=== PATIENT | male | born 1945 ===

== ENCOUNTER 2020-10-19 17:32 | Inpatient (IN) | payer MEDICARE ==
[~2020-10-19 17:32] MED LIST: Heparin 10,000 UNITS/ 10 ML VIAL ONE; Nitroglycerin 0.4 MG TAB (25 Tab Bottle) ONE
[2020-10-19] MEDS ORDERED: Ondansetron PF 4 MG/2 ML Vial ONE (17:43)
[2020-10-19] MEDS ORDERED: Iopamidol 370 76% 50 ML VIAL FS ONE (17:44)
[2020-10-19] MEDS ORDERED: Iopamidol 370 76% 100 ML VIAL ONE (17:44)
[2020-10-19 17:48] LABS: #Basophils 0.1 thou/uL (0.0-0.2); #Eosinphils 0.1 thou/uL (0.0-0.7); #Lymphocytes 1.7 thou/uL (1.20-3.40); #Monocytes 0.6 thou/uL (0.11-0.59); #Neutrophils 8.4 thou/uL (1.40-6.50); %Basophils 0.6 % (0.0-1.0); %Eosinophils 0.5 % (0.0-10.0); %Lymphocytes 15.9 % (21.0-51.0); %Monocytes 5.6 % (0.0-10.0); %Neutrophils 77.4 % (42.0-75.0); Hemoglobin 11.6 g/dL (14.0-18.0); Mean Corpuscular HGB CONC 32.4 g/dL (32.0-36.0); Mean Corpuscular Hemoglobin 29.1 pg (27.0-31.0); Mean Corpuscular Volume 89.9 fL (78.0-98.0); Mean Platelet Volume 7.8 fL (7.4-10.4); Platelet Count 252 thou/uL (130-400); RBC Distribution Width 14.7 % (11.5-14.5); Red Blood Cell (RBC) Count 3.97 mill/uL (4.70-6.10); White Blood Cell (WBC) Count 10.8 thou/uL (4.8-10.8)
--- NOTE | 2020-10-19 17:51 | RAD ---
EXAM: CHEST ONE VIEW: 10/19/20 HISTORY: Epigastric pain, mid sternal chest pain, pain radiating to arms and neck. FINDINGS: Monitor leads overlie the chest and somewhat obscured. Heart size is normal. No confluent pneumonia, overt edema, or pleural effusion. IMPRESSION: No significant acute intrathoracic disease. POS: RRE
[2020-10-19 17:56] LABS: PTT 32.2 sec (22.9-36.1); Prothrombin Time 13.6 sec (12.0-14.7)
[2020-10-19 18:05] LABS: ALT (SGPT) Less than 7 U/L (8-55); AST (SGOT) 15 U/L (5-34); Albumin 3.8 g/dL (3.4-4.8); Alkaline Phosphatase 82 U/L (40-110); Anion Gap 11 mmol/L (10-20); BUN (Urea Nitrogen) 10 mg/dL (8.4-25.7); Bilirubin, Total 0.2 mg/dL (0.2-1.2); CK (CPK) 134 U/L (30-200); Calc. Creatinine Clearance 0 mL/min (70-130); Calcium 8.5 mg/dL (7.8-10.44); Carbon Dioxide 27 mmol/L (23-31); Chloride 98 mmol/L (98-107); Glucose 127 mg/dL (83-110); Lipase 18 U/L (8-78); Potassium 3.7 mmol/L (3.5-5.1); Protein, Total 7.8 g/dL (5.8-8.1); Sodium 132 mmol/L (136-145)
[2020-10-19 18:13] LABS: CKMB 15.6 ng/mL (0-6.6)
[2020-10-19] MEDS ORDERED: TICAGRELOR 90 MG TABLET ONE (18:30)
[2020-10-19] MEDS ORDERED: Atropine Sulfate 1 mg/10 ml Syringe ONE (18:32)
[2020-10-19] MEDS ORDERED: EPINEPHrine 1 MG/10 ML Abboject SYRINGE ONE (18:34)
[2020-10-19] MEDS ORDERED: Adenosine 6 MG/2 ML VIAL ONE (18:39)
[2020-10-19] MEDS ORDERED: Nitroglycerin 100MG/250ML BOT 0 ML ONE (18:43)
--- NOTE | 2020-10-19 19:40 | HP ---
INDICATION FOR ADMISSION: A 75-year-old gentleman with acute inferior myocardial infarction, ST-segment elevation. HISTORY OF PRESENT ILLNESS: This 75-year-old gentleman who underwent cardiac catheterization in 1999 in [place], where he had a myocardial infarction, was told he had coronary artery disease and he has to stop smoking. He did not do this and now he presents today after having chest pain since around 1:30 this afternoon. It is now approximately 6:00 p.m. He presented to the emergency room approximately 20 to 30 minutes ago due to chest pain which started this afternoon. His chest pain, he rates it as a 6 to 7/10. He did not take anything for the chest pain. EKG shows acute inferior myocardial infarction with ST-segment elevation. He will be advised to undergo cardiac catheterization. He denies any history of hypertension, hypercholesterolemia, diabetes. Unfortunately, he continues to smoke quite a bit. FAMILY HISTORY: He has one brother, who had myocardial infarction, at age 75. PAST MEDICAL HISTORY: Significant for myocardial infarction in 1999, at which time he was in [place]. He has had three back surgeries. He has also had neck surgery back in March of last year. SOCIAL HISTORY: He is a . He has children, who are alive and well. He has continued tobacco abuse. He denied alcohol use. ALLERGIES: NONE. MEDICATIONS: At home include gabapentin and hydrocodone. In the emergency room, he was given heparin 4000 units, IV fluids. He was given aspirin 325 mg and morphine 2 mg, 2 nitroglycerins, and 600 mL of normal saline. He will be started on nitroglycerin drip. ALLERGIES: NONE. REVIEW OF SYSTEMS: 12-point review of systems unremarkable for history of restless legs syndrome. He said his legs give out when he tries to walk. PHYSICAL EXAMINATION: GENERAL: Reveals an elderly gentleman, who is in moderate degree of distress at this time. VITAL SIGNS: Blood pressure is about 115/70, heart rates in the 60s, shows a sinus rhythm thus far. HEENT: Shows the head to be normocephalic and atraumatic. Carotid pulses are present. I do not hear any bruits. CHEST: Actually clear to auscultation. He has decreased breath sounds. I did not hear any rales, rhonchi, or wheezing. CARDIOVASCULAR: Reveals a regular rate and rhythm. Normal S1 and S2. There were no significant murmurs, heaves, thrills, bruits, or rubs. ABDOMEN: Soft. He does have some tympany noted, but no significant tenderness or masses are noted. Femoral pulses are present, slightly decreased. EXTREMITIES: Showed no clubbing, cyanosis, or edema. Pedal pulses are present, somewhat decreased on the left side, but are present. The posterior tibial is slightly decreased on the left side. NEUROLOGIC: He appears to be grossly intact with no gross focal motor deficits. LABORATORY DATA: Thus far shows a hemoglobin of 11.6, platelet count 252,000, WBC of 10.8. EKG shows acute inferior myocardial infarction with evidence of possible old anterior myocardial infarction. I have explained the procedure, the risks to proceed with cardiac catheterization to the patient and the risks included bleeding, infection, possible myocardial infarction worsening, may not be able to open the vessel, CVA, renal insufficiency, bleeding, and even the possibility of . He understands and agrees to proceed. We will plan for cardiac catheterization. Also spoke with his daughter, Desiree and we will keep her informed of the results of the cardiac catheterization. IMPRESSION: 1. Acute ST-segment elevation myocardial infarction in the inferior area with possible old anterior myocardial infarction on the EKGs. 2. History of tobacco abuse. 3. History of restless legs syndrome. Job ID: [id number]
[2020-10-19 19:44] VITALS: BMI 20.9
[2020-10-19] MEDS ORDERED: Nitroglycerin 0.4 MG TAB (25 Tab Bottle) SL PRN (20:00)
[2020-10-19] MEDS ORDERED: Mag-Al 1200 mg/1200 mg/30 ML UDCUP PO PRN (20:00)
[2020-10-19] MEDS ORDERED: Acetaminophen/Codeine 30-300mg Tablet PO PRN ×2 (20:00)
[2020-10-19] MEDS ORDERED: Milk Of Magnesia 30 ML UDCUP PO PRN (20:00)
[2020-10-19] MEDS ORDERED: Sodium Chloride 0.9% 1,000 ML IV SCH (20:00)
[2020-10-19] MEDS ORDERED: Heparin 10,000 UNITS/ 10 ML VIAL SLOW IVP SCH (20:00)
[2020-10-19] MEDS ORDERED: cloNIDine 0.1 MG TAB PO PRN (20:00)
[2020-10-19] MEDS ORDERED: Zolpidem Tartrate 5 MG TAB PO PRN (20:00)
[2020-10-19] MEDS ORDERED: Heparin 25,000 units/D5W 500 ML IV SCH (20:00)
[2020-10-19] MEDS: Atorvastatin Calcium 40 MG TAB PO SCH (20:54)
[2020-10-19] MEDS: Carvedilol 3.125 MG TAB PO SCH (20:54)
[2020-10-19] MEDS: TICAGRELOR 90 MG TABLET PO SCH (20:54)
[2020-10-19] MEDS ORDERED: traZODone HCl 150 MG TAB PO SCH (21:45)
[2020-10-19] MEDS: Gabapentin 300 MG CAP PO SCH (22:20)
[2020-10-19] MEDS: HYDROcodone/Acetaminophen 10/325 mg Tablet PO PRN (22:37)
[2020-10-20 01:17] LABS: Troponin I 77.171 ng/mL (< 0.028)
[2020-10-20 01:43] LABS: SARS-CoV-2 PCR by NAA Not Detected (NotDetected)
[2020-10-20 05:41] LABS: #Lymphocytes 2.1 thou/uL (1.20-3.40); #Monocytes 0.5 thou/uL (0.11-0.59); #Neutrophils 5.3 thou/uL (1.40-6.50); %Basophils 0.5 % (0.0-1.0); %Eosinophils 0.3 % (0.0-10.0); %Lymphocytes 26.3 % (21.0-51.0); %Monocytes 6.3 % (0.0-10.0); %Neutrophils 66.6 % (42.0-75.0); Hemoglobin 9.9 g/dL (14.0-18.0); Mean Corpuscular HGB CONC 31.8 g/dL (32.0-36.0); Mean Corpuscular Hemoglobin 28.3 pg (27.0-31.0); Mean Corpuscular Volume 89.1 fL (78.0-98.0); Platelet Count 221 thou/uL (130-400); RBC Distribution Width 14.8 % (11.5-14.5); Red Blood Cell (RBC) Count 3.48 mill/uL (4.70-6.10)
[2020-10-20 06:04] LABS: ALT (SGPT) 21 U/L (8-55); AST (SGOT) 114 U/L (5-34); Albumin 3.1 g/dL (3.4-4.8); Alkaline Phosphatase 69 U/L (40-110); Anion Gap 10 mmol/L (10-20); BUN (Urea Nitrogen) 8 mg/dL (8.4-25.7); Bilirubin, Total 0.3 mg/dL (0.2-1.2); Calc. Creatinine Clearance 67 mL/min (70-130); Calcium 8.2 mg/dL (7.8-10.44); Carbon Dioxide 26 mmol/L (23-31); Chloride 102 mmol/L (98-107); Globulin 3.4 g/dL (2.4-3.5); Glucose 113 mg/dL (83-110); Protein, Total 6.5 g/dL (5.8-8.1); Sodium 134 mmol/L (136-145)
[2020-10-20 06:32] LABS: Troponin I 98.502 ng/mL (< 0.028)
[2020-10-20] MEDS ORDERED: FLU VACC QS2020-21(65YR UP)/PF 240 MCG/0.7 ML SYRINGE IM ONE (09:00)
[2020-10-20] MEDS: HYDROcodone/Acetaminophen 10/325 mg Tablet PO PRN (09:16)
[2020-10-20] MEDS: TICAGRELOR 90 MG TABLET PO SCH ×2 (09:17→20:41)
[2020-10-20] MEDS: Carvedilol 3.125 MG TAB PO SCH ×2 (09:17→20:41)
[2020-10-20] MEDS: Gabapentin 300 MG CAP PO SCH ×3 (09:18→20:41)
[2020-10-20] MEDS: Aspirin Chewable 81 MG TAB PO SCH (09:18)
[2020-10-20] MEDS: Lisinopril 2.5 MG TAB PO SCH (09:18)
--- NOTE | 2020-10-20 10:46 | PDOC.CPN ---
- Subjective Date: 10/20/20 Time: 10:44 - Review of Systems General: denies: fever/chills, weight/appetite/sleep changes, night sweats, fatigue Respiratory: denies: cough, congestion, shortness of breath, exercise intolerance Cardiovascular: denies: chest pain, palpitation, edema, paroxysmal nocturnal dyspnea, orthopnea Gastrointestinal: reports: nausea Musculoskeletal: denies: pain, tenderness, stiffness, swelling, arthritis/arthralgias Neurological: denies: numbness, syncope, seizure, weakness - Objective Allergies/Adverse Reactions: Allergies Allergy/AdvReac Type Severity Reaction Status Date / Time No Known Drug Allergies Allergy Verified 10/19/20 21:13 Visit Medications: Current Medications Acetaminophen/Codeine Phosphate (Acetaminophen/Codeine 30-300mg Tablet) 1 tab PO Q4H PRN PRN Reason: PAIN (1-3) Acetaminophen/Codeine Phosphate (Acetaminophen/Codeine 30-300mg Tablet) 2 tab PO Q4H PRN PRN Reason: PAIN (4-6) Hydrocodone Bitart/Acetaminophen (Hydrocodone/Acetaminophen 10/325 Mg Tablet) 1 tab PO Q4H PRN PRN Reason: Moderate Pain (4-6) Last Admin: 10/20/20 09:16 Dose: 1 tab Documented by: Al Hydroxide/Mg Hydroxide (Mag-Al 1200 Mg/1200 Mg/30 Ml Udcup) 30 ml PO Q3H PRN PRN Reason: Heartburn or Indigestion Alprazolam (Alprazolam 0.25 Mg Tab) 0.25 mg PO TID [facility] Aspirin (Aspirin Chewable 81 Mg Tab) 81 mg PO DAILY [facility] Last Admin: 10/20/20 09:18 Dose: 81 mg Documented by: Atorvastatin Calcium (Atorvastatin Calcium 40 Mg Tab) 40 mg PO HS [facility] Last Admin: 10/19/20 20:54 Dose: 40 mg Documented by: Carvedilol (Carvedilol 3.125 Mg Tab) 3.125 mg PO BID [facility] Last Admin: 10/20/20 09:17 Dose: 3.125 mg Documented by: Clonidine (Clonidine 0.1 Mg Tab) 0.1 mg PO Q2H PRN PRN Reason: SBP GREATER THAN 160 Gabapentin (Gabapentin 300 Mg Cap) 300 mg PO TID [facility] Last Admin: 10/20/20 09:18 Dose: 300 mg Documented by: Lisinopril (Lisinopril 2.5 Mg Tab) 2.5 mg PO DAILY [facility] Last Admin: 10/20/20 09:18 Dose: 2.5 mg Documented by: Magnesium Hydroxide (Milk Of Magnesia 30 Ml Udcup) 30 ml PO Q12H PRN PRN Reason: Constipation Nitroglycerin (Nitroglycerin 0.4 Mg Tab (25 Tab Bottle)) 0.4 mg SL Q5MIN PRN PRN Reason: Chest Pain Sodium Chloride (Flush - Normal Saline 10 Ml Syringe) 10 ml IVF PRN PRN PRN Reason: Saline Flush Ticagrelor (Ticagrelor 90 Mg Tablet) 90 mg PO BID [facility] Last Admin: 10/20/20 09:17 Dose: 90 mg Documented by: Trazodone HCl (Trazodone Hcl 150 Mg Tab) 150 mg PO HS [facility]IEL Zolpidem Tartrate (Zolpidem Tartrate 5 Mg Tab) 5 mg PO HS PRN PRN Reason: Insomnia Vital Signs & Weight: Vital Signs Temp Pulse BP 10/20/20 09:18 82 132/70 10/20/20 04:00 98.7 F 10/20/20 00:00 99.6 F Weight 138 lb 0.15 oz - Quality Measures Condition: Myocardial Infarction CV meds: Beta Deepti: Yes, FABIOLA/ARB: Yes, Statin: Yes, ASA: Yes - Physical Exam General: alert & oriented x3 HEENT: normocephaly Neck: no JVD/HJR Cardiac: no murmur Lungs: decreased breath sounds Neuro: grossly intact Abdomen: active bowel sounds, soft Extremities: no cyanosis, no clubbing, no edema Skin: clear Musculoskeletal: normal range of motion - Labs Result Diagrams: 10/20/20 05:25 10/20/20 05:25 Troponin/CKMB CK-MB (CK-2) 15.6 ng/mL (0-6.6) H* 10/19/20 17:39 Troponin I 98.502 ng/mL (< 0.028) H* 10/20/20 05:25 - Telemetry Sinus rhythms and dysrhythmias: sinus rhythm - Assessment/Plan Assessment/Plan: 1. CAD. s/p Inf. STEMI. PTCA/Stent RADU to prox. RCA. EF preserved. 2. obacco abuse. Will need assistance to stop, he is anxious and requesting something for nicotine withdrawal.ill give Xanax for now.
[2020-10-20] MEDS ORDERED: ALPRAZolam 0.25 MG TAB PO SCH (11:30)
--- NOTE | 2020-10-20 11:40 | CON ---
DATE OF CONSULTATION: REQUESTING PHYSICIAN: Maday Mendoza MD HISTORY OF PRESENT ILLNESS: This is a patient who was admitted with an acute RI, underwent coronary artery angiography with PTCA and stents, and was sent to the ICU. His sheath was removed this morning and Pulmonary consult was requested. The patient is a 2-pack per day smoker, started smoking at the age of 12, has no dyspnea, but has an occasional cough. He stopped smoking for approximately 10 years, but then resumed again. He states that he has a feeling of shortness of breath when he takes a deep breath today. He has no history of any DVT or PE. He did not have these symptoms prior to admission. He has no family history of thromboembolic disease either. He has no limitations of his physical activities. He is on a regular diet. He does wish to stop smoking and wishes some assistance with that. FAMILY HISTORY: Negative for stroke, RI, or COPD. PAST MEDICAL HISTORY: Hypertension. SOCIAL HISTORY: No significant alcohol use. Two-pack per day smoker. REVIEW OF SYSTEMS: Essentially negative except that he has anxiety. He also wants to have a stool today. He has intermittent nausea at home, for which he takes Phenergan and has nausea at this time. PULMONARY: As stated in the present illness. CARDIAC: No significant chest discomfort as he had prior to admission. ABDOMEN: He feels like he needs to have a bowel movement, does not want to use the bedpan. MUSCULOSKELETAL: Negative. NEUROLOGIC: Negative. CURRENT MEDICATIONS: Reviewed. 1. He is on Brilinta. 2. He had been on heparin. IMAGING STUDIES: Chest x-ray report, no acute intrathoracic disease. No pneumonia, edema, or effusions. LABORATORY DATA: Hemoglobin 9.9, down from 11.6 on admission; white count 8; platelet count 221; normal differential. Coags with a PTT of 80 this morning at midnight. Chemistry; sodium 134, potassium 4, chloride 102, bicarbonate 26, BUN 8, creatinine 0.84, glucose 113, AST 114. CK-MB was 15.6, troponins increased to from post-cath. Albumin 3.1. IMPRESSION: 1. A 75-year-old male smoker who wishes to stop smoking. 2. Dyspnea out of proportion to his chest x-ray findings on physical exam. 3. Acute myocardial infarction, status post percutaneous transluminal coronary angioplasty and stent. He will be on Brilinta treatment and has received heparin. 4. Hyponatremia, improving. 5. Anemia, progressive since post-catheterization without evidence of hematoma in his right groin or other gastrointestinal bleeding. 6. Anxiety. 7. Intermittent nausea. PLAN: 1. Give him small dose of IV Phenergan. The patient has been warned that the IV effects are somewhat different from the oral effects. 2. Consider CTA and venous Doppler on 10/21 if he continues to have significant symptoms of dyspnea. 3. Continue his current medications. 4. Follow up chemistry. 5. Cardiac issues per Cardiology. 6. Further intervention and decisions will be based on the patient's clinical response. Thank you for the opportunity to share in the evaluation of this patient. Job ID: [id number]
[2020-10-20] MEDS ORDERED: Sodium Chloride 0.9% 1,000 ML IV SCH (16:00)
[2020-10-20] MEDS: ALPRAZolam 0.25 MG TAB PO SCH ×2 (16:36→20:41)
[2020-10-20] MEDS ORDERED: Promethazine HCl 25 MG/ML VIAL SLOW IVP PRN (20:33)
[2020-10-20] MEDS: Nicotine 21 MG PATCH TOP SCH (20:40)
[2020-10-20] MEDS: traZODone HCl 150 MG TAB PO SCH (20:40)
[2020-10-20] MEDS: Atorvastatin Calcium 40 MG TAB PO SCH (20:40)
[2020-10-20] MEDS ORDERED: traZODone HCl 50 MG TAB PO SCH (21:00)
[2020-10-21] MEDS ORDERED: Promethazine HCl 25 MG/ML VIAL ONE (02:22)
[2020-10-21] MEDS: Aspirin Chewable 81 MG TAB PO SCH (10:59)
[2020-10-21] MEDS: TICAGRELOR 90 MG TABLET PO SCH ×2 (10:59→21:10)
[2020-10-21] MEDS: Carvedilol 3.125 MG TAB PO SCH ×2 (10:59→21:08)
[2020-10-21] MEDS: Gabapentin 300 MG CAP PO SCH ×3 (10:59→21:09)
[2020-10-21] MEDS: Lisinopril 2.5 MG TAB PO SCH (11:20)
[2020-10-21] MEDS: ALPRAZolam 0.25 MG TAB PO SCH ×3 (12:00→21:08)
--- NOTE | 2020-10-21 14:10 | PRG ---
DATE OF SERVICE: 10/21/2020 SUBJECTIVE: Júnior Pelayo is status post coronary artery disease stent. History of tobacco abuse. Denies any pain, shortness of breath, coughing, wheezing, or nausea. OBJECTIVE: VITAL SIGNS: Temperature 98.0, sats 90% room air, blood pressure respiratory rate 18. CHEST: No wheezing. No crackles. CARDIAC: Normal S1, S2. No gallops. ABDOMEN: No masses. LABORATORY DATA: Status post emergency cardiac cath with stenting. Tobacco abuse. Chest x-ray, normal. PLAN: Continue supportive care. Can be transferred out of the ICU whenever appropriate per Cardiology. Job ID: [id number]
[2020-10-21] MEDS: Atorvastatin Calcium 40 MG TAB PO SCH (21:08)
[2020-10-21] MEDS: Nicotine 21 MG PATCH TOP SCH (21:10)
[2020-10-21] MEDS: traZODone HCl 150 MG TAB PO SCH (21:10)
[2020-10-21] MEDS: HYDROcodone/Acetaminophen 10/325 mg Tablet PO PRN (21:10)
[2020-10-22] MEDS: HYDROcodone/Acetaminophen 10/325 mg Tablet PO PRN (08:44)
[2020-10-22] MEDS: Lisinopril 2.5 MG TAB PO SCH (08:44)
[2020-10-22] MEDS: Aspirin Chewable 81 MG TAB PO SCH (08:44)
[2020-10-22] MEDS: TICAGRELOR 90 MG TABLET PO SCH (08:45)
[2020-10-22] MEDS: Carvedilol 3.125 MG TAB PO SCH (08:46)
[2020-10-22] MEDS: Gabapentin 300 MG CAP PO SCH (08:46)
[2020-10-22] MEDS: ALPRAZolam 0.25 MG TAB PO SCH (08:46)
--- NOTE | 2020-10-22 10:22 | PRG ---
DATE OF SERVICE: SUBJECTIVE: This morning, he is awake, alert, responsive. No pain. No shortness of breath. OBJECTIVE: VITAL SIGNS: Temperature 98, pulse 80, respirations 12, sats are on room air, and blood pressure 127/64. CHEST: No wheezing. No crackles. CARDIAC: Normal S1 and S2. No gallops. ABDOMEN: No masses. ASSESSMENT: Coronary artery disease, status post stent. Tobacco abuse. Chronic obstructive pulmonary disease. Normal chest x-ray. PLAN: Pulmonary grace, continue present cardiac care. He may benefit from an outpatient PFT when he is stable. Once again, he is to refrain from smoking. Job ID: [id number]
--- NOTE | 2020-10-22 11:19 | DIS ---
DATE OF ADMISSION: 10/19/2020 DATE OF DISCHARGE: 10/22/2020 ADMITTING DIAGNOSES: 1. Acute inferior ST-segment elevation myocardial infarction. 2. Chronic pain syndrome. 3. Restless legs syndrome. 4. Tobacco abuse. 5. Chronic back pain. DISCHARGE DIAGNOSES: 1. Acute inferior ST-segment elevation myocardial infarction. 2. Chronic pain syndrome. 3. Restless legs syndrome. 4. Tobacco abuse. 5. Chronic back pain. PROCEDURE IN HOSPITAL: Includes emergent cardiac catheterization with angioplasty and stent placement to the right coronary artery which was completely occluded. DISCHARGE MEDICATIONS: Include; 1. Gabapentin 300 mg t.i.d. 2. Hydrocodone/APAP 10/325 one q.4 hours as needed. 3. Trazodone every evening. 4. Alprazolam 0.25 mg p.o. t.i.d. as needed for anxiety. 5. Aspirin 81 mg a day. 6. Atorvastatin 40 mg at bedtime. 7. Coreg 3.125 mg b.i.d. 8. Lisinopril 2.5 mg p.o. daily. 9. Nicotine patch 21 mg daily. 10. Plavix 75 mg p.o. daily. 11. Tylenol as needed. 12. Nitroglycerin sublingual p.r.n. as needed. FOLLOWUP: His followup will be with me in 2 to 3 weeks in the office. He will continue to follow up with his primary care physician. HOSPITAL COURSE: This is a very unfortunate 75-year-old gentleman, who had history of myocardial infarction in 1999, also at that time underwent apparently cardiac catheterization, was told he did not have any significant abnormalities that required stenting, and he also continued to smoke after being told to stop. He presented to the emergency room, having an acute inferior myocardial infarction. He was found to have 100% occluded right coronary artery, which he underwent angioplasty and stent placement. He has done well since that time. EKG had significant improvement. However, his enzymes did have elevation, compatible with a myocardial infarction. His peak troponin-I was 98. Otherwise, he has done well. His BNP was 165. He has had no evidence of congestive heart failure. He has done well. At this time, he has been ambulating is the room without symptoms and is ready for discharge. I will see him back in the office. He has been strongly encouraged to stop smoking. He had been given Brilinta originally after the stent was placed. We will change this over to Plavix and he should do fine with this medication. I will see him back in the office in the next 2-3 weeks. Job ID: [id number] MTDD
[2020-10-22 11:56] VITALS: BP 121/73; TEMP 98.2
[2020-10-22] MEDS ORDERED: TICAGRELOR 90 MG TABLET PO SCH (21:00)
[2020-10-23] MEDS ORDERED: Clopidogrel Bisulfate 75 MG TAB PO SCH (09:00)
== END 2020-10-22 12:40 | disposition home or self-care (01) | DRG 247 ==
LOC: ERS 17:32 → CCL 18:59 → CCU 19:00 → 2NO 10-21 20:24
PROVIDERS: ADMIT Internal Medicine Cardiovascular Disease; ATTEND Internal Medicine Cardiovascular Disease
PROC: 027034Z Dilation of Coronary Artery, One Artery with Drug-eluting Intraluminal Device, Percutaneous Approach (ICD-10-PCS; principal; 2020-10-19)
PROC: 02C03ZZ Extirpation of Matter from Coronary Artery, One Artery, Percutaneous Approach (ICD-10-PCS; 2020-10-19)
PROC: 4A023N7 Measurement of Cardiac Sampling and Pressure, Left Heart, Percutaneous Approach (ICD-10-PCS; 2020-10-19)
PROC: B2111ZZ Fluoroscopy of Multiple Coronary Arteries using Low Osmolar Contrast (ICD-10-PCS; 2020-10-19)
DX: I21.19 ST elevation (STEMI) myocardial infarction involving other coronary artery of inferior wall (principal); E87.1 Hypo-osmolality and hyponatremia; G89.4 Chronic pain syndrome; G25.81 Restless legs syndrome; M54.9 Dorsalgia, unspecified; F41.9 Anxiety disorder, unspecified; D64.9 Anemia, unspecified; J44.9 Chronic obstructive pulmonary disease, unspecified; Z20.822 Contact with and (suspected) exposure to COVID-19; I25.10 Atherosclerotic heart disease of native coronary artery without angina pectoris; F17.200 Nicotine dependence, unspecified, uncomplicated; I25.2 Old myocardial infarction
CPT/HCPCS: 36415; 71045; 80053; 82550; 82553; 83690; 83880; 84484; 85025; 85347; 85610; 85730; 86850; 86900; 86901; 87635; 92941; 93005; 93010; 93458; 93798; 96374; 96375; 96376; 97139; C1874; C9606; J0153; J0171; J0461; J1644; J2405; J2550; Q9967; U0003; U0005

== ENCOUNTER 2025-08-05 11:25 | Inpatient (IN) | payer MEDICARE ==
[2025-08-05] MEDS ORDERED: Iopamidol 370 76% 100 ML VIAL ONE (11:46)
[2025-08-05 12:04] LABS: #Basophils 0.03 10x3/uL (0.0-0.2); #Eosinophils 0.17 10x3/uL (0.0-0.7); #Monocytes 0.73 10x3/uL (0.11-0.59); #Neutrophils 6.86 10x3/uL (1.40-6.50); %Basophils 0.3 % (0.0-1.0); %Eosinophils 1.8 % (0.0-10.0); %Lymphocytes 18.2 % (21.0-51.0); %Monocytes 7.6 % (0.0-10.0); %Neutrophils 71.8 % (42.0-75.0); Hematocrit 38.7 % (42.0-52.0); Hemoglobin 12.3 g/dL (14.0-18.0); Mean Corpuscular Hemoglobin 28.8 pg (27.0-31.0); Mean Corpuscular Volume 90.6 fL (78.0-98.0); Platelet Count 252 10x3/uL (130-400); Red Blood Cell (RBC) Count 4.27 mill/uL (4.70-6.10); White Blood Cell (WBC) Count 9.56 10x3/uL (4.8-10.8)
[2025-08-05 12:28] LABS: ALT (SGPT) Less than 7 U/L (Less than 45); AST (SGOT) 21 U/L (11-34); Albumin 4.0 g/dL (3.1-4.5); Alkaline Phosphatase 101 U/L (40-110); Anion Gap 13 mmol/L (10-20); BUN (Urea Nitrogen) 12 mg/dL (8.4-25.7); Bilirubin, Total 0.4 mg/dL (0.3-1.2); Calc. Creatinine Clearance 0 mL/min (70-130); Calcium 9.9 mg/dL (7.8-10.44); Carbon Dioxide 28 mmol/L (23-31); Chloride 102 mmol/L (98-107); Globulin 4.1 g/dL (2.4-3.5); Glucose 101 mg/dL (83-110); Potassium 4.5 mmol/L (3.5-5.1); Sodium 138 mmol/L (136-145)
[2025-08-05 12:30] LABS: INR-International Normal Ratio 1.0; Prothrombin Time 13.6 sec (12.0-14.7)
[2025-08-05 12:31] LABS: PTT 28.4 sec (22.9-36.1)
[2025-08-05] MEDS ORDERED: Nitroglycerin 2% Ointment 1 INCH/1 GM Packet ONE (13:18)
[2025-08-05] MEDS ORDERED: Aspirin Chewable 81 MG TAB ONE (13:19)
[2025-08-05] MEDS ORDERED: Gabapentin 300 MG CAP ONE (13:19)
[2025-08-05] MEDS ORDERED: Azithromycin 500 MG VIAL ONE (17:04)
[2025-08-05] MEDS ORDERED: Enoxaparin 60 MG (0.6 mL) SYRINGE ONE (17:04)
[2025-08-05] MEDS ORDERED: cefTRIAXone (ROCEPHIN) 2 GM VIAL ONE (17:04)
[2025-08-05 19:07] VITALS: BMI 19.8
[2025-08-05] MEDS: HYDROcodone/Acetaminophen 10/325 mg Tablet PO PRN (20:27)
[2025-08-05] MEDS: Gabapentin 300 MG CAP PO SCH (20:29)
[2025-08-05] MEDS: Acetaminophen 325 MG TAB PO PRN (22:03)
[2025-08-06 05:13] LABS: Hematocrit 30.5 % (42.0-52.0); Hemoglobin 9.8 g/dL (14.0-18.0); Mean Corpuscular Hemoglobin 29.0 pg (27.0-31.0); Mean Corpuscular Volume 90.2 fL (78.0-98.0); Platelet Count 213 10x3/uL (130-400); Red Blood Cell (RBC) Count 3.38 mill/uL (4.70-6.10); White Blood Cell (WBC) Count 10.70 10x3/uL (4.8-10.8)
[2025-08-06 05:29] LABS: Anion Gap 13 mmol/L (10-20); BUN (Urea Nitrogen) 13 mg/dL (8.4-25.7); Calc. Creatinine Clearance 53 mL/min (70-130); Calcium 8.6 mg/dL (7.8-10.44); Carbon Dioxide 26 mmol/L (23-31); Chloride 105 mmol/L (98-107); Glucose 96 mg/dL (83-110); Potassium 3.8 mmol/L (3.5-5.1); Sodium 140 mmol/L (136-145)
[2025-08-06] MEDS: Enoxaparin 60 MG (0.6 mL) SYRINGE SC SCH (10:20)
[2025-08-06 13:47] LABS: #Basophils 0.03 10x3/uL (0.0-0.2); #Eosinophils 0.07 10x3/uL (0.0-0.7); #Monocytes 0.70 10x3/uL (0.11-0.59); #Neutrophils 6.60 10x3/uL (1.40-6.50); %Basophils 0.3 % (0.0-1.0); %Eosinophils 0.7 % (0.0-10.0); %Lymphocytes 21.3 % (21.0-51.0); %Monocytes 7.4 % (0.0-10.0); %Neutrophils 70.1 % (42.0-75.0); Hematocrit 32.5 % (42.0-52.0); Hemoglobin 10.5 g/dL (14.0-18.0); Mean Corpuscular Hemoglobin 29.1 pg (27.0-31.0); Mean Corpuscular Volume 90.0 fL (78.0-98.0); Platelet Count 222 10x3/uL (130-400); Red Blood Cell (RBC) Count 3.61 mill/uL (4.70-6.10); White Blood Cell (WBC) Count 9.43 10x3/uL (4.8-10.8)
[2025-08-06] MEDS: Apixaban 5 MG TAB PO SCH (21:52)
[2025-08-06] MEDS: Amoxicillin/Potassium Clav 875 MG TAB PO SCH (21:53)
[2025-08-07 04:27] LABS: #Basophils Less than 0.03 10x3/uL (0.0-0.2); #Eosinophils 0.27 10x3/uL (0.0-0.7); #Monocytes 0.86 10x3/uL (0.11-0.59); #Neutrophils 5.16 10x3/uL (1.40-6.50); %Basophils 0.2 % (0.0-1.0); %Eosinophils 3.0 % (0.0-10.0); %Lymphocytes 30.6 % (21.0-51.0); %Monocytes 9.4 % (0.0-10.0); %Neutrophils 56.7 % (42.0-75.0); Hematocrit 30.0 % (42.0-52.0); Hemoglobin 9.6 g/dL (14.0-18.0); Mean Corpuscular Hemoglobin 29.0 pg (27.0-31.0); Mean Corpuscular Volume 90.6 fL (78.0-98.0); Platelet Count 206 10x3/uL (130-400); Red Blood Cell (RBC) Count 3.31 mill/uL (4.70-6.10); White Blood Cell (WBC) Count 9.11 10x3/uL (4.8-10.8)
[2025-08-07 04:51] LABS: Iron 18 ug/dL (65-175); Iron Binding Capacity, Total 169 mcg/dL (261-462)
[2025-08-07 11:55] VITALS: BP 158/72; TEMP 97.7
[2025-08-08] MEDS ORDERED: PNEUMOC 20-VAL CONJ-DIP CRM/PF 0.5 ML SYRINGE IM ONE (09:00)
== END 2025-08-07 15:00 | disposition home or self-care (01) | DRG 175 ==
LOC: ERS 11:25 → 2NO 17:09
PROVIDERS: ADMIT Internal Medicine; ATTEND Internal Medicine
PROC: 3E0234Z Introduction of Serum, Toxoid and Vaccine into Muscle, Percutaneous Approach (ICD-10-PCS; principal; 2025-08-05)
DX: I26.99 Other pulmonary embolism without acute cor pulmonale (principal); J18.9 Pneumonia, unspecified organism; I25.10 Atherosclerotic heart disease of native coronary artery without angina pectoris; I10 Essential (primary) hypertension; F17.210 Nicotine dependence, cigarettes, uncomplicated; J98.4 Other disorders of lung; I25.2 Old myocardial infarction; Z95.5 Presence of coronary angioplasty implant and graft; Z98.890 Other specified postprocedural states; Z79.899 Other long term (current) drug therapy; Z79.01 Long term (current) use of anticoagulants; Z79.02 Long term (current) use of antithrombotics/antiplatelets; Z23 Encounter for immunization
CPT/HCPCS: 36415; 36416; 71045; 71275; 80048; 80053; 82728; 83540; 83550; 83690; 83880; 84484; 85025; 85027; 85610; 85730; 93005; 94760; 96365; 96375; J0456; J0696; J1650; J2272; Q9967